=== PATIENT | male | born 1945 | race Caucasian/White ===

== ENCOUNTER 2018-06-17 10:52 | Outpatient (REF) | payer MEDICARE, OTHER, SELFPAY ==
[2018-06-17 21:04] LABS: Anion Gap 8.5 mmol/L (3-11); BUN 18 mg/dL (7-18); CO2 29.5 mmol/L (21.0-32.0); CREATININE 0.97 mg/dL (0.70-1.30); Chloride 100 mmol/L (98-107); Cholesterol 194 mg/dL (50-200); Glucose 90 mg/dL (70-100); HDL Cholesterol 48 mg/dL (40-60); LDL CHOLESTEROL 125 mg/dL (<100); Potassium 3.9 mmol/L (3.5-5.1); Sodium 138 mmol/L (136-145); Triglyceride 171 mg/dL (30-150)
== END 2018-06-17 11:12 ==
LOC: NCHCN 10:52
PROVIDERS: PCP Family Medicine; Visit Provider Family Medicine
DX: I10 Essential (primary) hypertension (principal)
CPT/HCPCS: 80048; 80061; 83721

== ENCOUNTER 2019-07-21 13:02 | Outpatient (REF) | payer MEDICARE, OTHER, SELFPAY ==
[2019-07-21 21:52] LABS: Anion Gap 8.4 mmol/L (3-11); BUN 17 mg/dL (7-18); CO2 27.6 mmol/L (21.0-32.0); CREATININE 1.04 mg/dL (0.70-1.30); Chloride 103 mmol/L (98-107); Glucose 87 mg/dL (74-106); Potassium 3.9 mmol/L (3.5-5.1); Sodium 139 mmol/L (136-145)
== END 2019-07-21 13:22 ==
LOC: NCHCN 13:02
PROVIDERS: PCP Family Medicine; Visit Provider Family Medicine
DX: I10 Essential (primary) hypertension (principal)
CPT/HCPCS: 80048

== ENCOUNTER 2019-12-11 19:44 | Outpatient (REF) | payer MEDICARE, OTHER, SELFPAY ==
[2019-12-11 21:12] LABS: Prothrombin Time 10.3 sec (9.3-11.0)
[2019-12-11 21:45] LABS: Abs Immature Grans 0.05 10^3/uL (0.0-0.06); Absolute Basophil Count 0.06 10^3/uL (0.0-0.2); Absolute Eosinophil Count 0.14 10^3/uL (0.0-0.7); Absolute Lymphocyte Count 1.26 10^3/uL (1.2-3.4); Absolute Monocyte Count 0.96 10^3/uL (0.1-0.8); Absolute Neutrophil Count 9.42 10^3/uL (1.2-6.7); Basophils % 0.5; Eosinophils % 1.2; HCT 46.3 % (40.0-50.0); HGB 14.8 g/dL (13.5-17.5); Immature Grans % 0.4; Lymphocytes % 10.6; MCH 30.8 pg (27.0-33.0); MCV 96.5 fL (80-95); MPV 11.5 fL (8.0-11.0); Monocytes % 8.1; Neutrophils % 79.2; Nucleated RBC 0 %; Platelet Count 247 10^3/uL (130-400); RDW-SD 42.8 fL; WBC 11.89 10^3/uL (4.4-10.8)
[2019-12-11 22:19] LABS: ALT 21 U/L (16-63); AST 15 U/L (15-37); Albumin 3.6 g/dL (3.4-5.0); Alkaline Phosphatase 68 U/L (46-116); BUN 15 mg/dL (7-18); Bilirubin, Total 0.6 mg/dL (0.2-1.0); CREATININE 0.88 mg/dL (0.70-1.30); Calcium 9.2 mg/dL (8.5-10.1); Calculated LDL 78 mg/dL (<100); Chloride 102 mmol/L (98-107); Cholesterol 154 mg/dL (<200); Glucose 90 mg/dL (74-106); HDL Cholesterol 55 mg/dL (40-60); Potassium 4.2 mmol/L (3.5-5.1); Sodium 137 mmol/L (136-145); Total Protein 6.9 g/dL (6.4-8.2); Triglyceride 105 mg/dL (<150)
== END 2019-12-11 20:04 ==
LOC: NCHCN 19:44
PROVIDERS: PCP Family Medicine; Visit Provider Nurse Practitioner Family
DX: E78.5 Hyperlipidemia, unspecified (principal); Z01.818 Encounter for other preprocedural examination
CPT/HCPCS: 80053; 80061; 85025; 85610

== ENCOUNTER 2021-01-17 15:28 | Outpatient (REF) | payer MEDICARE, SELFPAY ==
[2021-01-17 21:02] LABS: BUN 18 mg/dL (7-18); Calcium 9.2 mg/dL (8.5-10.1); Chloride 104 mmol/L (98-107); Glucose 90 mg/dL (74-106); Potassium 4.1 mmol/L (3.5-5.1); Sodium 141 mmol/L (136-145)
[2021-01-20 11:06] LABS: Syphilis Serology (RPR) Negative (Negative)
== END 2021-01-17 15:29 | disposition home or self-care (01) ==
LOC: NCHCN 15:28
PROVIDERS: PCP Family Medicine; Visit Provider Family Medicine
DX: I10 Essential (primary) hypertension (principal); Z11.3 Encounter for screening for infections with a predominantly sexual mode of transmission; Z72.51 High risk heterosexual behavior
CPT/HCPCS: 80048; 86592

== ENCOUNTER 2022-01-16 11:50 | Outpatient (REF) | payer MEDICARE, OTHER, SELFPAY ==
--- OUTSIDE RECORDS SUMMARY | 2022-01-16 11:53 | XMS_ITS | CCD ---
:1945 Author Care Team Providers Name Role Phone ARIELA RODRÍGUEZ Attending Physician Unavailable Vital Signs Unknown or Not Available. Allergies Allergy Code Allergy Type Reaction Status NEOSPORIN 378163 Drug allergy Active BACTRIM 278429 Drug allergy RASH Active Procedures Unknown or Not Available. History of Immunizations Unknown or Not Available. Problems Unknown or Not Available. Results PSA SCREENING ANTIGEN TOTAL* - Collect D ate/Time: 03/25/2021 12:47 Test Name Code Test Result Test Units Test Ref Range PSA 2857-1 1.43 ng/mL L=0.00 H=6.50 Active Medications Unknown or Not Available. Medications Administered During Visit Unknown or Not Available. Encounters Encounter Diagnosis Diagnosis Code Start Date Screening for malignant neoplasm of prostate [id number] 03/25/2021 Social History Smoking Status Code Start Date End Date Former smoker [id number] 1962 03/09/1993 Patient Decision Aids Unknown or Not Available. Discharge Instructions You were admitted to [facility] on 03/25/2021 11:58 with a principal diagnosis of Encounter for screening for malignant neoplasm of prostate You had the following tests done: PSA S CREENING ANTIGEN TOTAL* You were discharged from [facility] on 03/25/2021 11:58 Should you have any questions prior to d ischarge, please contact a member of your healthcare team. If you have left the ho spital and have any questions, please contact your primary care physician. Chief Complaint and Reason For Visit Unknown or Not Available. Function Status Unknown or Not Available. Plan of Care Unknown or Not Available. Referral/Transition of Care Unknown or Not Available.
--- OUTSIDE RECORDS SUMMARY | 2022-01-16 11:53 | XMS_ITS | CCD ---
:1945 Author Care Team Providers Name Role Phone MIRIAN GUNDERSON Attending Physician Unavailable MIRIAN GUNDERSON Rounding (Secondary) Physician Unavailab le Vital Signs Unknown or Not Available. Allergies Allergy Code Allergy Type Reaction Status NEOSPORIN 283284 Drug allergy Active BACTRIM 357065 Drug allergy RASH Active Procedures Unknown or Not Available. History of Immunizations Unknown or Not Available. Problems Unknown or Not Available. Results Unknown or Not Available. Active Medications Unknown or Not Available. Medications Administered During Visit Unknown or Not Available. Encounters Encounter Diagnosis Diagnosis Code Start Date Artificial knee joint present [id number] 12/24/2020 Social History Smoking Status Code Start Date End Date Former smoker [id number] 1962 03/09/1993 Patient Decision Aids Unknown or Not Available. Discharge Instructions You were admitted to [facility] on 12/24/2020 08:43 with a principal diagnosis of Presence of left artificial knee join t You were discharged from [facility] on 12/24/2020 00:00 Should you have any questions prior to [...]
[2022-01-16 14:58] LABS: Anion Gap 7.3 mmol/L (3-11); BUN 17 mg/dL (7-18); CO2 29.7 mmol/L (21.0-32.0); Calcium 9.1 mg/dL (8.5-10.1); Calculated LDL 50 mg/dL (<100); Chloride 105 mmol/L (98-107); Cholesterol 131 mg/dL (<200); Glucose 124 mg/dL (74-106); HDL Cholesterol 53 mg/dL (40-60); Potassium 3.8 mmol/L (3.5-5.1); Sodium 142 mmol/L (136-145); Triglyceride 141 mg/dL (<150)
== END 2022-01-16 11:51 | disposition home or self-care (01) ==
LOC: NCHCN 11:50
PROVIDERS: PCP Family Medicine; Visit Provider Family Medicine
DX: E78.5 Hyperlipidemia, unspecified (principal); I10 Essential (primary) hypertension
CPT/HCPCS: 80048; 80061

== ENCOUNTER 2023-01-15 11:41 | Outpatient (REF) | payer OTHER, SELFPAY ==
[2023-01-15 16:08] LABS: Anion Gap 6.6 mmol/L (3-11); BUN 20 mg/dL (7-18); CO2 30.4 mmol/L (21.0-32.0); Calcium 9.7 mg/dL (8.5-10.1); Chloride 105 mmol/L (98-107); Estimated GFR 77.52 (mL/min/1.73m2); Glucose 112 mg/dL (74-106); Potassium 4.2 mmol/L (3.5-5.1); Sodium 142 mmol/L (136-145)
== END 2023-01-15 11:42 | disposition home or self-care (01) ==
LOC: NCHCN 11:41
PROVIDERS: PCP Family Medicine; Visit Provider Family Medicine
DX: I10 Essential (primary) hypertension (principal)
CPT/HCPCS: 80048

== ENCOUNTER 2023-09-17 16:50 | Outpatient (REF) | payer OTHER, SELFPAY ==
[2023-09-17 21:06] LABS: Abs Immature Grans 0.03 10^3/uL (0.0-0.06); Absolute Basophil Count 0.14 10^3/uL (0.0-0.2); Absolute Eosinophil Count 0.39 10^3/uL (0.0-0.7); Absolute Lymphocyte Count 1.24 10^3/uL (1.2-3.4); Absolute Monocyte Count 0.69 10^3/uL (0.1-0.8); Absolute Neutrophil Count 6.76 10^3/uL (1.2-6.7); Basophils % 1.5 %; Eosinophils % 4.2 %; HCT 44.5 % (40.0-50.0); HGB 14.5 g/dL (13.5-17.5); Immature Grans % 0.3 %; Lymphocytes % 13.4 %; MCH 30.9 pg (27.0-33.0); MCHC 32.6 % (32.0-36.0); MCV 95 fL (80-95); MPV 11.1 fL (8.0-11.0); Monocytes % 7.5 %; Neutrophils % 73.1 %; Platelet Count 221 10^3/uL (130-400); RBC 4.69 10^6/uL (4.36-5.78); RDW 12.2 % (11.8-14.1); RDW-SD 42.6 fL; WBC 9.25 10^3/uL (4.4-10.8)
[2023-09-17 21:18] LABS: Anion Gap 10.2 mmol/L (3-11); BUN 16 mg/dL (7-18); CO2 26.8 mmol/L (21.0-32.0); Calcium 9.3 mg/dL (8.5-10.1); Chloride 103 mmol/L (98-107); Estimated GFR 77.04 (mL/min/1.73m2); Glucose 119 mg/dL (74-106); Sodium 140 mmol/L (136-145)
[2023-09-18 22:07] LABS: Rheumatoid Factor <8.6 IU/mL (<12.0)
[2023-09-20 15:31] LABS: ANA Interpretation Negative (Negative)
== END 2023-09-17 16:51 | disposition home or self-care (01) ==
LOC: NCHCN 16:50
PROVIDERS: PCP Family Medicine; Visit Provider Family Medicine
DX: I10 Essential (primary) hypertension (principal); M19.09 Primary osteoarthritis, other specified site; R79.89 Other specified abnormal findings of blood chemistry
CPT/HCPCS: 80048; 85025; 86038; 86431

== ENCOUNTER 2025-01-29 14:44 | Outpatient (REF) | payer MEDICARE, SELFPAY ==
[2025-01-29 21:38] LABS: Anion Gap 9 mmol/L (3-11); BUN 21 mg/dL (9-23); CO2 29.0 mmol/L (20.0-31.0); Calcium 9.4 mg/dL (8.3-10.6); Chloride 106 mmol/L (98-107); Cholesterol 134 mg/dL (<200); Glucose 97 mg/dL (74-106); HDL Cholesterol 50 mg/dL (>or=40); Potassium 3.8 mmol/L (3.5-5.1); Sodium 144 mmol/L (136-145)
== END 2025-01-29 14:45 | disposition home or self-care (01) ==
LOC: NCHCN 14:44
PROVIDERS: PCP Family Medicine; Visit Provider Family Medicine
DX: E78.5 Hyperlipidemia, unspecified (principal); I10 Essential (primary) hypertension
CPT/HCPCS: 80048; 80061